=== PATIENT | female | born 1960 | race Caucasian/White ===

== ENCOUNTER 2018-01-16 09:39 | Inpatient (IN) | payer MEDICAID ==
[~2018-01-16] VITALS: Ht 167.6 cm; Wt 80.3 kg
[~2018-01-16 09:39] MED LIST: LANTUS SOLOS100 U/M1 SQ; LIPI20 PO; LISINOPRIL AND1 TA2 PO; METFORMIN HCL500 MG PO; NEU300 PO
[2018-01-16 10:43] LABS: BASOPHIL % 0.4 % (0-2); PLATELET COUNT 361 x10^3mcL (130-400)
[2018-01-16 10:49] LABS: RED CELL DISTRIBUTION WIDTH 14.6 % (11.5-14.5)
[2018-01-16 10:58] LABS: CALCIUM 8.7 mg/dL (8.5-10.1); CARBON DIOXIDE 28.2 mmol/L (21-32); CREATININE SERUM 1.3 mg/dL (0.6-1.0); POTASSIUM SERUM 3.9 mmol/L (3.5-5.1)
[2018-01-16 11:02] LABS: ALBUMIN 3.4 g/dL (3.4-5.0); BILIRUBIN TOTAL 0.1 mg/dL (0.20-1.00); TOTAL PROTEIN, SERUM 7.5 g/dL (6.4-8.2)
[2018-01-16 13:08] LABS: T3 TOTAL 1.09 ng/mL
[2018-01-16 15:29] VITALS: BP 145/85
[2018-01-16 15:46] LABS: HDL CHOLESTEROL 46 mg/dL (40-60); MAGNESIUM 1.7 mg/dL (1.8-2.4); PHOSPHOROUS 3.5 mg/dL (2.5-4.9)
[2018-01-16 15:50] LABS: CHOLESTEROL 222 mg/dL (<200); CHOLESTEROL/HDL RATIO 4.8; TRIGLYCERIDES 469 mg/dL (<150)
[2018-01-16 16:51] VITALS: BP 123/68
[2018-01-16 17:10] LABS: FREE T4 0.97 ng/dL (0.76-1.46); FREE THYROXINE INDEX 2.4 ug/dL (1.4-4.5); T4(THYROXINE) 7.2 ug/dL (4.7-13.3)
[2018-01-16 19:30] VITALS: BP 147/80
[2018-01-17 05:21] LABS: UA SPECIFIC GRAVITY >=1.030 (1.005-1.035); microscopic required? YES; urine erythrocyte NEGATIVE (NEGATIVE)
[2018-01-17 05:31] LABS: AMPHETAMINE QUAL UR POSITIVE (NEG <=1000)
[2018-01-17 06:16] LABS: BASOPHIL % 0.6 % (0-2); PLATELET COUNT 318 x10^3mcL (130-400)
[2018-01-17 06:28] VITALS: BP 104/68
[2018-01-17 06:48] LABS: RED CELL DISTRIBUTION WIDTH 14.8 % (11.5-14.5)
[2018-01-17 08:17] LABS: CALCIUM 8.6 mg/dL (8.5-10.1); CARBON DIOXIDE 22.5 mmol/L (21-32); CHLORIDE SERUM 107 mmol/L (98-107); GFR1 > 60 mL/min; GLUCOSE SERUM 124 mg/dL (74-106); MAGNESIUM 2.4 mg/dL (1.8-2.4); PHOSPHOROUS 4.1 mg/dL (2.5-4.9); POTASSIUM SERUM 4.2 mmol/L (3.5-5.1); SODIUM SERUM 141 mmol/L (136-145)
[2018-01-17 09:59] VITALS: BP 144/84
[2018-01-17 17:09] VITALS: BP 147/94
[2018-01-17 18:45] VITALS: Ht 167.6 cm; Wt 80.3 kg
[2018-01-17 21:31] VITALS: BP 152/81
[2018-01-18 05:45] VITALS: BP 153/95
[2018-01-18 06:53] LABS: BASOPHIL % 0.5 % (0-2); PLATELET COUNT 334 x10^3mcL (130-400)
[2018-01-18 07:10] LABS: RED CELL DISTRIBUTION WIDTH 15.1 % (11.5-14.5)
[2018-01-18 07:32] LABS: CALCIUM 8.6 mg/dL (8.5-10.1); CARBON DIOXIDE 27.1 mmol/L (21-32); CHLORIDE SERUM 105 mmol/L (98-107); CREATININE SERUM 0.9 mg/dL (0.6-1.0); GFR1 > 60 mL/min; GLUCOSE SERUM 139 mg/dL (74-106); MAGNESIUM 1.8 mg/dL (1.8-2.4); POTASSIUM SERUM 4.4 mmol/L (3.5-5.1); SODIUM SERUM 140 mmol/L (136-145)
[2018-01-18] MEDS ORDERED: LEVAQUIN750 MG PO (08:08)
[2018-01-18] MEDS ORDERED: FLA500 PO (08:09)
[2018-01-18] MEDS ORDERED: LAC PO (08:09)
[2018-01-18] MEDS ORDERED: HIBICLENS118 ML TOP (08:10)
[2018-01-18] MEDS ORDERED: BACO TOP (08:11)
[2018-01-18] MEDS ORDERED: COR3 PO (08:12)
[2018-01-18] MEDS ORDERED: DULOXETINE HYDR60 MG PO (08:12)
[2018-01-18] MEDS ORDERED: LIPI20 PO (08:19)
[2018-01-18] MEDS ORDERED: NEU300 PO (08:19)
[2018-01-18] MEDS ORDERED: METFORMIN HCL500 MG PO (08:19)
[2018-01-18 08:47] VITALS: BP 161/87
[2018-01-18 11:20] VITALS: BP 161/87
== END 2018-01-18 12:15 | disposition home or self-care (01) | DRG 816 ==
LOC: ED 09:39 → MU 11:58 → DU 11:58 → MU 01-17 10:21
PROVIDERS: Emergency Medicine; Family Medicine
DX: T40.5X1A Poisoning by cocaine, accidental (unintentional), initial encounter (principal); N17.0 Acute kidney failure with tubular necrosis; G92 Toxic encephalopathy; K57.92 Diverticulitis of intestine, part unspecified, without perforation or abscess without bleeding; I10 Essential (primary) hypertension; D64.9 Anemia, unspecified; F17.210 Nicotine dependence, cigarettes, uncomplicated; F32.9 Major depressive disorder, single episode, unspecified; E78.5 Hyperlipidemia, unspecified; M79.7 Fibromyalgia; Z90.49 Acquired absence of other specified parts of digestive tract; F63.3 Trichotillomania; E11.65 Type 2 diabetes mellitus with hyperglycemia; Y92.9 Unspecified place or not applicable
CPT/HCPCS: 82962; 83880; 84439; 99406; G0480; J1815; J1885; J1956; J3475; J3490; J7030; Q0092

== ENCOUNTER 2018-02-06 11:44 | Emergency (ER) | payer MEDICAID ==
[~2018-02-06] VITALS: Ht 167.6 cm; Wt 83.5 kg
[~2018-02-06 11:44] MED LIST changes: +BACO TOP; +COR3 PO; +DULOXETINE HYDR60 MG PO; +FLA500 PO; +HIBICLENS118 ML TOP; +LAC PO; +LEVAQUIN750 MG PO
[2018-02-06 12:12] VITALS: Ht 167.6 cm; Wt 83.5 kg
[2018-02-06 15:24] VITALS: BP 136/98
[2018-02-06 15:24] LABS: UA SPECIFIC GRAVITY 1.025 (1.005-1.035); microscopic required? YES; urine erythrocyte NEGATIVE (NEGATIVE)
== END 2018-02-06 17:20 | disposition home or self-care (01) ==
LOC: ED 11:44
PROVIDERS: Emergency Medicine
DX: R10.32 Left lower quadrant pain (principal); I10 Essential (primary) hypertension; E11.9 Type 2 diabetes mellitus without complications; Z90.49 Acquired absence of other specified parts of digestive tract; Z90.89 Acquired absence of other organs; Z87.19 Personal history of other diseases of the digestive system
CPT/HCPCS: J1885

== ENCOUNTER 2018-04-10 12:42 | Emergency (ER) | payer MEDICAID ==
[~2018-04-10] VITALS: Ht 167.6 cm; Wt 82.1 kg
[2018-04-10 12:59] VITALS: Ht 167.6 cm; Wt 82.1 kg
[2018-04-10 16:26] VITALS: BP 118/76
== END 2018-04-10 16:26 | disposition home or self-care (01) ==
LOC: ED 12:42
DX: G89.29 Other chronic pain (principal); R10.9 Unspecified abdominal pain; I10 Essential (primary) hypertension; E11.9 Type 2 diabetes mellitus without complications
CPT/HCPCS: J1885